=== PATIENT | female | born 1990 | race African-American/Black ===

== ENCOUNTER 2018-10-09 10:06 | Outpatient (CLI) | payer OTHER ==
--- NOTE | 2018-10-10 07:21 | EKG ---
Test Reason : TYPE 1 DIABETES YULIA Blood Pressure : / mmHG Vent. Rate : 089 BPM Atrial Rate : 089 BPM P-R Int : 140 ms QRS Dur : 086 ms QT Int : 354 ms P-R-T Axes : 055 -13 035 degrees QTc Int : 430 ms Normal sinus rhythm Moderate voltage criteria for LVH, may be normal variant Borderline ECG No previous ECGs available Confirmed by EDUARDO ADAME ([id number]) on 10/10/2018 7:21:26 AM Referred By: ANGELLA Confirmed By:EDUARDO ADAME
== END 2018-10-09 10:07 | disposition home or self-care (01) ==
LOC: EKG 10:06
PROVIDERS: ATTEND Obstetrics & Gynecology
DX: E10.9 Type 1 diabetes mellitus without complications (principal)
CPT/HCPCS: 93005; 93010

== ENCOUNTER 2018-11-16 19:55 | Inpatient (IN) | payer OTHER ==
--- NOTE | 2018-11-16 15:24 | PDOC.LDHP ---
Labor and Delivery H&P Chief complaint: scheduled induction HPI: 28 yo @ 37w3d by 27 week sono who presents for IOL due to Type 1 DM ( uncontrolled) and GHTN. Antepartum course also complicated by anemia, + GBS, reported thyroid d/o (however, pt labs wnl without meds). Denies preE sx. Current gestational age (weeks): 37 Due date: 12/04/18 Dating criteria: second trimester ultrasound Grav: 2 Para: 1 Current complications: pregestational diabetes, gestational hypertension Abnormal US findings: No Past Medical History: Class CDM Anemia GHTN ? Thyroid d/o Current medications: pre-peter vitamins, iron, other (Lantus 44 units QAM, 56 units QHS and Novolog QAM 10 with breakfast Metformin 1000 mg BID) Previous surgical history: none Allergies/Adverse Reactions: Allergies Allergy/AdvReac Type Severity Reaction Status Date / Time No Known Allergies Allergy Verified 11/16/18 20:13 Social history: none - Physical Exam Vital signs reviewed and normal: yes General: NAD Heart: RRR Lungs: nonlabored breathing Abdomen: gravid Extremeties: trace edema FHT: category 1 (130s, mod mateo, +accels, no decels) Rotan contractions every: q2-3 min - Vaginal Exam cm dilated: 4 (cephalic, AROM clear ) Effacement: 50% Station: -2 - OB Labs Blood type: O RH: positive Antibody Screen: negative HIV: negative RPR: negative HEPSAg: negative GBS: positive Urine drug screen: negative Rubella: immune Additional Labs: HbA1C 7.4 Hbg 10 TSH wnl RPR +, however, confirmatory testing negative - Assessment 37w3d IUP Class CDM Severe GHTN vs preE with severe features LTC Anemia GBS+ - Plan Plan: admit to L&D, cervical ripening, GBS antibiotic prophylaxis, informed consent obtained, anesthesia consult for pain management -: Took dose of metformin and lantus last night Start NS, plan to transition to dextrose in labor Accuchecks q2 hr in latent and q hr in active labor with SC insulin protocol. If BG not controlled, will use insulin drip. Given Hydralazine 5 mg, 10 mg and Labetalol 20 mg IV last night/this AM with resolution of severe BPs. Mag started. Continue mag for seizure PPX.
[2018-11-16] MEDS ORDERED: Ibuprofen 800 MG TAB PO PRN (20:12)
[2018-11-16] MEDS ORDERED: HYDROcodone/Acetaminophen 5/325 mg Tablet PO PRN (20:12)
[2018-11-16] MEDS ORDERED: Lidocaine 1% (PF) 30 ML VIAL SC PRN (20:12)
[2018-11-16] MEDS ORDERED: Misoprostol 200 MCG TAB PR PRN (20:12)
[2018-11-16] MEDS ORDERED: Diphenoxylate HCl/Atropine Tablet PO PRN (20:12)
[2018-11-16] MEDS ORDERED: Acetaminophen 500 MG TAB PO PRN (20:12)
[2018-11-16] MEDS ORDERED: Promethazine HCl 25 MG/ML VIAL IM PRN (20:12)
[2018-11-16] MEDS ORDERED: Methylergonovine 0.2 MG/ML VIAL IM PRN (20:12)
[2018-11-16] MEDS ORDERED: Butorphanol Tartrate 1 MG/ML VIAL SLOW IVP PRN (20:12)
[2018-11-16] MEDS ORDERED: Insulin Regular 300 UNITS/3 ML VIAL SC PRN (20:12)
[2018-11-16] MEDS ORDERED: Ondansetron PF 4 MG/2 ML Vial IVP PRN (20:12)
[2018-11-16] MEDS ORDERED: Carboprost 250 MCG/ML AMP IM PRN (20:12)
[2018-11-16 20:21] VITALS: BMI 40.7
[2018-11-16] MEDS: Sodium Chloride 0.9% 1,000 ML IV SCH ×2 (20:27→23:58)
[2018-11-16] MEDS ORDERED: metFORMIN 500 MG TAB PO SCH (20:30)
[2018-11-16 20:40] LABS: Hemoglobin 10.1 g/dL (12.0-16.0); Mean Corpuscular HGB CONC 33.5 g/dL (32.0-36.0); Mean Corpuscular Hemoglobin 26.8 pg (27.0-31.0); Mean Corpuscular Volume 79.8 fL (78.0-98.0); Mean Platelet Volume 9.8 fL (7.4-10.4); Platelet Count 156 thou/uL (130-400); RBC Distribution Width 11.9 % (11.5-14.5); Red Blood Cell (RBC) Count 3.79 mill/uL (4.20-5.40); White Blood Cell (WBC) Count 6.9 thou/uL (4.8-10.8)
[2018-11-16] MEDS: Misoprostol 100 MCG TAB VAG SCH ×2 (20:44→23:56)
[2018-11-16] MEDS ORDERED: Penicillin G Potassium 5 MILL.UNITS in Sodium Chloride 0.9% 100 ML IVPB SCH (21:00)
[2018-11-16 21:02] LABS: ALT (SGPT) 7 U/L (8-55); AST (SGOT) 11 U/L (5-34); Albumin 3.2 g/dL (3.5-5.0); Alkaline Phosphatase 89 U/L (40-150); Anion Gap 10 mmol/L (10-20); BUN (Urea Nitrogen) 7 mg/dL (7.0-18.7); Bilirubin, Total 0.3 mg/dL (0.2-1.2); Calc. Creatinine Clearance 227 mL/min (70-130); Calcium 9.8 mg/dL (7.8-10.44); Carbon Dioxide 22 mmol/L (22-29); Chloride 107 mmol/L (98-107); Estimated GFR-MDRD Greater than 90; Globulin 3.5 g/dL (2.4-3.5); Glucose 144 mg/dL (70-105); Potassium 3.9 mmol/L (3.5-5.1); Protein, Total 6.7 g/dL (6.0-8.3); Sodium 135 mmol/L (136-145)
[2018-11-16 21:21] LABS: Syphilis Antibody Nonreactive (Nonreactive); Syphilis Antibody Index 0.05 S/CO (<1.00 Non-Reactive)
[2018-11-16 22:26] LABS: HBSAg Index 0.29 S/CO (0-0.99); HIV (1/2) Antibody/Antigen Non-Reactive (NonReactive); HIV 1/2 INDEX 0.26 S/CO (<1.00); Hep B Surf Ag Non-Reactive S/CO (NonReactive)
[2018-11-17 00:31] LABS: Bilirubin Negative (Negative); Blood, Urine Negative (Negative); Clarity CLEAR (Clear); Glucose, Urine (Dipstick) Negative (Negative); Leukocyte Negative (Negative); Nitrite Negative (Negative); Protein, Urine (Dipstick) Trace mg/dL (Neg-Trace); Specific Gravity, Urine 1.016 (1.002-1.036); pH, Urine 6.5 (5.0-9.0)
[2018-11-17 00:35] LABS: Bacteria/HPF 1+ HPF (None Seen); Hyaline Casts/LPF 4-6 HYALINE CAST LPF (0-3 Hyaline); Pathc Cast-AUWi Flag 1.08 (0-2.49); RBC/HPF 0-3 HPF (0-3); Squamous Epithelial 0-3 HPF (0-3); WBC/HPF 0-3 HPF (0-3)
[2018-11-17] MEDS: Misoprostol 100 MCG TAB VAG SCH ×6 (02:58→18:45)
[2018-11-17] MEDS ORDERED: hydrALAZINE 20 MG/ML VIAL SLOW IVP SCH (04:30)
[2018-11-17] MEDS: Penicillin G 2.5 MILL.units 2.5 MILL.UNITS in Premix Bag 1 BAG IVPB SCH ×6 (04:39→18:30)
[2018-11-17] MEDS ORDERED: hydrALAZINE 20 MG/ML VIAL SLOW IVP PRN (04:45)
[2018-11-17] MEDS: Labetalol HCl 100 MG/20 ML VIAL ONE ×2 (05:51→18:41)
[2018-11-17] MEDS ORDERED: Magnesium Sulfate 20 gm/500 ml 4 GM/100 ML BAG IVPB SCH (06:00)
[2018-11-17] MEDS ORDERED: Misoprostol 100 MCG TAB PO SCH (06:00)
[2018-11-17] MEDS ORDERED: Calcium Gluc 4.6 MEQ/10 ML (100 MG/ML) SLOW IVP PRN (07:32)
[2018-11-17] MEDS ORDERED: Fentanyl 4 mcg/Bup 0.1% Cadd 100 ML ONE (07:52)
[2018-11-17] MEDS ORDERED: metFORMIN 500 MG TAB PO SCH (08:00)
[2018-11-17] MEDS ORDERED: Fentanyl 4 mcg/Bupivacaine 0.1% Cassette 100 ML EPIDURAL SCH (08:30)
[2018-11-17] MEDS ORDERED: diphenhydrAMINE 50 MG/ML VIAL IVP PRN (08:30)
[2018-11-17] MEDS ORDERED: Ondansetron PF 4 MG/2 ML Vial IVP PRN (08:30)
[2018-11-17] MEDS ORDERED: Acetaminophen 325 MG TAB PO PRN (08:30)
[2018-11-17] MEDS ORDERED: Promethazine HCl 25 MG/ML VIAL IM PRN (08:30)
[2018-11-17] MEDS ORDERED: Communication Order-Pharmacy FS SCH (08:30)
[2018-11-17] MEDS ORDERED: ePHEDrine/0.9% NaCl/PF SYRINGE 50 mg/10 ml SLOW IVP PRN (08:30)
[2018-11-17] MEDS ORDERED: Naloxone HCl 0.4 mg/ml Vial IVP PRN ×2 (08:30)
[2018-11-17] MEDS ORDERED: Lactated Ringer's 500 ML IV PRN (08:30)
[2018-11-17] MEDS: NS w/ Oxytocin 10 units 500 ML IV SCH (08:49)
[2018-11-17] MEDS ORDERED: Dextrose 5%-Lactated Ringers 1,000 ML IV SCH (10:00)
--- NOTE | 2018-11-17 13:07 | PDOC.LDPN ---
Labor & Delivery Progress Note - Subjective Subjective: comfortable - Objective Vital signs reviewed and normal: yes General: NAD Uterine fundus: non tender SVE: 7 Effacement: 90% Station: 1+ FHT: category 1 (110s, mod mateo, +accels, no decels ) Cumings contractions every: q2-4 min - Assessment (1) 37 weeks gestation of Code(s): Z3A.37 - 37 WEEKS GESTATION OF Current Visit: Yes Status : Acute (2) Type 1 diabetes mellitus Current Visit: Yes Status: Acute (3) Pre-eclampsia Code(s): O14.90 - UNSPECIFIED PRE-ECLAMPSIA, UNSPECIFIED TRIMESTER Current Visit: Yes Status: Acute (4) Anemia Code(s): D64.9 - ANEMIA, UNSPECIFIED Current Visit: Yes Status: Acute Qualifiers: Iron deficiency anemia type: inadequate dietary iron intake (5) Group B streptococcal carriage complicating Code(s): O99.820 - STREPTOCOCCUS B CARRIER STATE COMPLICATING Current Visit: Yes Status: Acute Plan: continue plan of care, pitocin for augmentation -: BG well controlled, Dextrose for labor Continue mag protocol. BPs normal-mild range at this time.
[2018-11-17] MEDS: Magnesium Sulfate 20 gm/500 ml 20 GM/500 ML BAG IVPB PRN ×2 (14:16→23:53)
[2018-11-17] MEDS: NS / Oxytocin 40 units/1000ml 1,000 ML IV PRN ×2 (14:38→22:03)
[2018-11-17] MEDS ORDERED: Misoprostol 200 MCG TAB ONE (14:44)
[2018-11-17] MEDS ORDERED: Carboprost 250 MCG/ML AMP ONE (14:44)
--- NOTE | 2018-11-17 14:59 | PDOC.OPDEL ---
OB Operative/Delivery Note Delivery Dr/Surgeon: Nancy Green DO Pre-Delivery Diagnosis: medically indicated induction Procedure/Post Delivery Dx: spontaneous vaginal delivery Weeks gestation: 37 Anesthesia: epidural - Findings A Sex: male - 1 min: 8 - 5 min: 8 - Additional Findings/Plan Placenta delivered: spontaneous Repaired Obstetrical Laceration: 2nd degree Estimated blood loss: QBL 500 cc Compilations/Other Findings: Infant in DOMINIK position. Nuchal x 1 Normal appearing placenta uterine atony at delivery, Hemabate and cytotec given with resolution Post delivery plan: recovery in LICU
[2018-11-17] MEDS ORDERED: HYDROcodone/Acetaminophen 5/325 mg Tablet PO PRN (16:33)
[2018-11-17] MEDS ORDERED: Benzocaine-Menthol 82.5 ML CAN TOP PRN (16:33)
[2018-11-17] MEDS ORDERED: Bisacodyl 10 MG SUPP PR PRN (16:33)
[2018-11-17] MEDS ORDERED: Milk Of Magnesia 30 ML UDCUP PO PRN (16:33)
[2018-11-17] MEDS ORDERED: NS / Oxytocin 40 units/1000ml 1,000 ML IV SCH (16:45)
[2018-11-17] MEDS: Ferrous Sulfate 325 MG TAB PO SCH (18:41)
[2018-11-17] MEDS: metFORMIN 500 MG TAB PO SCH (18:45)
[2018-11-17] MEDS ORDERED: Labetalol HCl 100 MG/20 ML VIAL SLOW IVP SCH (19:00)
--- NOTE | 2018-11-17 20:37 | PDOC.EVN ---
Event Note - Event Note Event Note: Late entry note Notified by RN regarding severe range BP near 6:30 pm. Pt given Labetalol 20 mg IV Plan to start Labtalol 200 mg PO BID Continue magnesium until 24 hrs PP Hold home insulin until eating, PRN insulin
[2018-11-17] MEDS: Labetalol 100 MG TAB PO SCH (21:03)
[2018-11-17] MEDS: Docusate Calcium (SURFAK) 240 MG CAP PO SCH (23:49)
[2018-11-18 06:44] LABS: Mean Corpuscular HGB CONC 33.4 g/dL (32.0-36.0); Mean Corpuscular Hemoglobin 26.8 pg (27.0-31.0); Mean Corpuscular Volume 80.3 fL (78.0-98.0); Mean Platelet Volume 9.7 fL (7.4-10.4); Platelet Count 167 thou/uL (130-400); RBC Distribution Width 12.2 % (11.5-14.5); Red Blood Cell (RBC) Count 3.72 mill/uL (4.20-5.40); White Blood Cell (WBC) Count 10.8 thou/uL (4.8-10.8)
[2018-11-18 07:06] LABS: ALT (SGPT) 7 U/L (8-55); AST (SGOT) 14 U/L (5-34); Albumin 2.8 g/dL (3.5-5.0); Alkaline Phosphatase 81 U/L (40-150); Anion Gap 12 mmol/L (10-20); BUN (Urea Nitrogen) Less than 4 mg/dL (7.0-18.7); Bilirubin, Total 0.6 mg/dL (0.2-1.2); Calc. Creatinine Clearance 244 mL/min (70-130); Calcium 8.1 mg/dL (7.8-10.44); Carbon Dioxide 20 mmol/L (22-29); Chloride 107 mmol/L (98-107); Estimated GFR-MDRD Greater than 90; Glucose 82 mg/dL (70-105); Protein, Total 5.8 g/dL (6.0-8.3); Sodium 135 mmol/L (136-145)
[2018-11-18] MEDS: Labetalol 100 MG TAB PO SCH ×2 (08:23→21:00)
[2018-11-18] MEDS: Ibuprofen 800 MG TAB PO PRN (08:24)
[2018-11-18] MEDS: metFORMIN 500 MG TAB PO SCH ×2 (08:24→17:24)
[2018-11-18] MEDS: Docusate Calcium (SURFAK) 240 MG CAP PO SCH ×2 (08:25→21:01)
[2018-11-18] MEDS: Ferrous Sulfate 325 MG TAB PO SCH ×2 (08:25→17:24)
[2018-11-18] MEDS: Magnesium Sulfate 20 gm/500 ml 20 GM/500 ML BAG IVPB PRN (08:26)
--- NOTE | 2018-11-18 10:34 | PDOC.PP ---
Post Progress Note Post Day #: 1 PO intake tolerated: yes Flatus: no Ambulation: no Vital Signs (12 hours) Pulse BP 11/18/18 08:23 85 142/88 H 11/17/18 23:49 88 135/83 Weight Weight 260 lb - Physical Examination General: NAD Respiratory: non-labored breathing Abdominal: no distention, appropriately TTP Fundus firm & at: umb-2 Skin: no rash Neurological: no gross focal deficits (DTR 2+ bilaterally) Psychiatric: normal affect Result Diagrams: 11/18/18 06:29 11/18/18 06:29 Additional Labs: Post Labs Blood Type O POSITIVE 11/16/18 21:34 Hep Bs Antigen Non-Reactive S/CO (NonReactive) 11/16/18 20:20 - Assessment/Plan PPD1 s/p TSVD at 37w due to PIH with T2DM. VSSAF PIH- on labetalol 200 BID, BP nl -mild, no sx PIH, on Mag until 24h post delivery, will DC at 24h. PIH labs wnl, diuresing 200-300cc/hr, no sx Mag toxicity T2DM- restart half dose insulin, ADA diet restarted for lunch - DC da silva OOB/ambulate Mild anemia due to acute blood loss, lochia appropriate, no sx anemia, cont Iron and PNV. Transfer to floor after Mag course.
[2018-11-18] MEDS: HumaLOG 300 UNITS/3 ML VIAL SC SCH ×2 (12:16→17:21)
[2018-11-18] MEDS: Insulin Glargine 28 UNITS in Pre-Filled Syringe 1 EACH SC SCH (21:03)
[2018-11-19] MEDS: Labetalol 100 MG TAB PO SCH ×2 (07:59→21:01)
[2018-11-19] MEDS ORDERED: Labetalol HCl 100 MG/20 ML VIAL SLOW IVP SCH ×2 (08:30→12:45)
--- NOTE | 2018-11-19 08:41 | PDOC.PP ---
Post Progress Note Post Day #: 2 Subjective: Denies preE sx. Minimal pain and lochia. Formula feeding. Held PM insulin du eto BG in 70s-90s. Still taking Metformin. PO intake tolerated: yes Flatus: yes Ambulation: yes Vital Signs (12 hours) Temp Pulse Resp BP BP BP 11/19/18 08:33 82 173/82 H 11/19/18 07:59 89 171/81 H 11/19/18 05:40 97.7 F 92 20 140/68 11/19/18 00:00 97.7 F 87 18 139/76 11/18/18 21:00 86 18 157/81 H 157/87 H Weight Weight 260 lb - Physical Examination General: NAD Cardiovascular: RRR Respiratory: non-labored breathing Abdominal: no distention, appropriately TTP Deviation from normal: Fundus firm & at: below umbilicus Extremities: negative homans (B) Deviation from normal: no clonus, DTRs wnl. Neurological: no gross focal deficits Psychiatric: A&Ox3, normal affect Result Diagrams: 11/18/18 06:29 11/18/18 06:29 Additional Labs: Post Labs Blood Type O POSITIVE 11/16/18 21:34 Hep Bs Antigen Non-Reactive S/CO (NonReactive) 11/16/18 20:20 (1) 37 weeks gestation of Code(s): Z3A.37 - 37 WEEKS GESTATION OF Status: Resolved (2) Type 1 diabetes mellitus Status: Acute (3) Pre-eclampsia Code(s): O14.90 - UNSPECIFIED PRE-ECLAMPSIA, UNSPECIFIED TRIMESTER Status: Acute (4) Anemia Code(s): D64.9 - ANEMIA, UNSPECIFIED Status: Acute Qualifiers: Iron deficiency anemia type: inadequate dietary iron intake (5) Group B streptococcal carriage complicating Code(s): O99.820 - STREPTOCOCCUS B CARRIER STATE COMPLICATING Status : Resolved - Assessment/Plan PPD2 Severe HTN this am. Labetalol 20 mg IV once given now. Continue Labetalol 200 mg BID and add procardia 30 mg XL this AM. Continue to observe until BPs well controlled. Insulin at half dose prior to delivery, however, not needed last night. Will monitor and adjust insulin as needed. Continue iron Plan for d/c in 1-2 days after DM regimen established and HTN controlled.
[2018-11-19] MEDS: metFORMIN 500 MG TAB PO SCH ×2 (09:10→17:57)
[2018-11-19] MEDS: Insulin Glargine 22 UNITS in Pre-Filled Syringe 1 EACH SC SCH (09:10)
[2018-11-19] MEDS: NIFEdipine XL 30 MG TAB PO SCH (09:10)
[2018-11-19] MEDS: Docusate Calcium (SURFAK) 240 MG CAP PO SCH ×2 (09:10→21:01)
[2018-11-19] MEDS: Ferrous Sulfate 325 MG TAB PO SCH ×2 (09:10→17:57)
[2018-11-19] MEDS: HumaLOG 300 UNITS/3 ML VIAL SC SCH ×3 (09:12→17:57)
[2018-11-19] MEDS: NS w/ Oxytocin 10 units 500 ML IV SCH (09:32)
[2018-11-19] MEDS: Ibuprofen 800 MG TAB PO PRN (20:29)
[2018-11-19] MEDS: Insulin Glargine 28 UNITS in Pre-Filled Syringe 1 EACH SC SCH (21:01)
--- NOTE | 2018-11-20 08:01 | PDOC.PP ---
Post Progress Note Post Day #: 3 Subjective: No concerns. Minimal pain and lochia. Denies preE sx. Bottle feeding. PO intake tolerated: yes Flatus: yes Ambulation: yes Vital Signs (12 hours) Temp Pulse Resp BP BP BP Pulse Ox 11/20/18 04:36 97.6 F 88 20 149/88 H 11/20/18 00:00 97.8 F 92 18 134/68 11/19/18 21:01 86 157/78 H 11/19/18 20:30 98.4 F 86 18 157/78 H 99 Weight Weight 260 lb - Physical Examination General: NAD Cardiovascular: RRR Respiratory: non-labored breathing Abdominal: appropriately TTP Extremities: negative homans (B) Neurological: no gross focal deficits Psychiatric: A&Ox3, normal affect Result Diagrams: 11/18/18 06:29 11/18/18 06:29 Additional Labs: Post Labs Blood Type O POSITIVE 11/16/18 21:34 Hep Bs Antigen Non-Reactive S/CO (NonReactive) 11/16/18 20:20 (1) 37 weeks gestation of Code(s): Z3A.37 - 37 WEEKS GESTATION OF Status: Resolved (2) Type 1 diabetes mellitus Status: Acute (3) Pre-eclampsia Code(s): O14.90 - UNSPECIFIED PRE-ECLAMPSIA, UNSPECIFIED TRIMESTER Status: Acute (4) Anemia Code(s): D64.9 - ANEMIA, UNSPECIFIED Status: Acute Qualifiers: Iron deficiency anemia type: inadequate dietary iron intake (5) Group B streptococcal carriage complicating Code(s): O99.820 - STREPTOCOCCUS B CARRIER STATE COMPLICATING Status : Resolved (6) Vaginal delivery Code(s): O80 - ENCOUNTER FOR FULL-TERM UNCOMPLICATED DELIVERY Status: Acute - Assessment/Plan PPD3 DM controlled with current regimen. Advised to continue at home. BPs improved with Procardia and Labetalol. Continue dosing at home. Advised to check BPs daily at home Stable for d/c home today with . F/U 2 weeks BP check.
[2018-11-20 08:31] VITALS: TEMP 98.1
[2018-11-20] MEDS: HumaLOG 300 UNITS/3 ML VIAL SC SCH ×2 (08:45→12:46)
[2018-11-20] MEDS: Docusate Calcium (SURFAK) 240 MG CAP PO SCH (08:45)
[2018-11-20] MEDS: metFORMIN 500 MG TAB PO SCH (08:45)
[2018-11-20] MEDS: Ferrous Sulfate 325 MG TAB PO SCH (08:45)
[2018-11-20] MEDS: Labetalol 100 MG TAB PO SCH (08:45)
[2018-11-20] MEDS: NIFEdipine XL 30 MG TAB PO SCH (08:45)
[2018-11-20] MEDS: Insulin Glargine 22 UNITS in Pre-Filled Syringe 1 EACH SC SCH (09:00)
[2018-11-20] MEDS ORDERED: Adacel (T-DAP) 0.5 ML SYRINGE IM ONE (12:00)
[2018-11-20] MEDS ORDERED: Labetalol HCl 100 MG/20 ML VIAL SLOW IVP SCH (12:30)
[2018-11-20 13:07] VITALS: BP 159/78
== END 2018-11-20 15:05 | disposition home or self-care (01) | DRG 806 ==
LOC: L&D 19:55 → 3SW 11-18 16:10
PROVIDERS: ADMIT Obstetrics & Gynecology; ATTEND Obstetrics & Gynecology
PROC: 10E0XZZ Delivery of Products of Conception, External Approach (ICD-10-PCS; principal; 2018-11-17)
PROC: 0KQM0ZZ Repair Perineum Muscle, Open Approach (ICD-10-PCS; 2018-11-17)
PROC: 3E0P7VZ Introduction of Hormone into Female Reproductive, Via Natural or Artificial Opening (ICD-10-PCS; 2018-11-17)
PROC: 3E033VJ Introduction of Other Hormone into Peripheral Vein, Percutaneous Approach (ICD-10-PCS; 2018-11-17)
DX: O24.02 Pre-existing type 1 diabetes mellitus, in childbirth (principal); D62 Acute posthemorrhagic anemia; Z37.0 Single live birth; E10.9 Type 1 diabetes mellitus without complications; O13.4 Gestational [pregnancy-induced] hypertension without significant proteinuria, complicating childbirth; O99.824 Streptococcus B carrier state complicating childbirth; O99.02 Anemia complicating childbirth; O14.94 Unspecified pre-eclampsia, complicating childbirth; O69.81X0 Labor and delivery complicated by cord around neck, without compression, not applicable or unspecified; O70.1 Second degree perineal laceration during delivery; Z3A.37 37 weeks gestation of pregnancy; Z79.4 Long term (current) use of insulin
CPT/HCPCS: 36415; 36416; 51702; 80053; 81001; 83735; 85027; 86780; 86850; 86900; 86901; 87340; 87389; 90715; C1726; J0360; J1815; J1825; J2001; J2540; J2590; J3475; J3490

== ENCOUNTER 2021-11-12 20:14 | Inpatient (IN) | payer OTHER ==
[~2021-11-12 20:14] MED LIST: Iopamidol-370 76% 500 ML 1 ML ONE
[2021-11-12 20:43] LABS: #Monocytes 0.5 thou/uL (0.11-0.59); #Neutrophils 9.2 thou/uL (1.40-6.50); %Basophils 0.2 % (0.0-1.0); %Eosinophils 0.1 % (0.0-10.0); %Monocytes 4.3 % (0.0-10.0); %Neutrophils 86.4 % (42.0-75.0); Hemoglobin 12.4 g/dL (12.0-16.0); Mean Corpuscular HGB CONC 32.6 g/dL (32.0-36.0); Mean Corpuscular Hemoglobin 26.9 pg (27.0-31.0); Mean Corpuscular Volume 82.5 fL (78.0-98.0); Mean Platelet Volume 7.8 fL (7.4-10.4); Platelet Count 232 thou/uL (130-400); RBC Distribution Width 11.5 % (11.5-14.5); Red Blood Cell (RBC) Count 4.61 mill/uL (4.20-5.40); White Blood Cell (WBC) Count 10.6 thou/uL (4.8-10.8)
[2021-11-12] MEDS ORDERED: Ketorolac Tromethamine 30 MG/ML VIAL ONE (20:50)
[2021-11-12] MEDS ORDERED: cefTRIAXone\\ROCEPHIN 2 GM VIAL ONE (20:50)
[2021-11-12 20:51] LABS: Actual Bicarbonate (HCO3v) 22 mEq/L (22-28); Analyzer IN Cardio ER; Base Excess 0.1 mEq/L (-2.0 to +3.0); Calcium, Ionized (venous) 1.08 mmol/L (1.16-1.32); Chloride (VBG) 100 mmol/L (98-106); Sodium 130.8 mmol/L (133-146); pH (venous) 7.53 (7.32-7.43)
[2021-11-12] MEDS ORDERED: Acetaminophen 500 MG TAB ONE (20:52)
[2021-11-12 20:53] LABS: BHCG - Serum Negative (NEGATIVE); Pregs Control Background? CLEAR/WHITE (CLR/WHITE); Pregs Control Bar Appear? YES (CONTROL BAR)
[2021-11-12 21:03] LABS: ALT (SGPT) 18 U/L (8-55); AST (SGOT) 21 U/L (5-34); Alkaline Phosphatase 80 U/L (40-110); Anion Gap 14 mmol/L (10-20); BUN (Urea Nitrogen) 9 mg/dL (7.0-18.7); Bilirubin, Total 1.8 mg/dL (0.2-1.2); Calc. Creatinine Clearance 0 mL/min (70-130); Calcium 9.6 mg/dL (7.8-10.44); Carbon Dioxide 24 mmol/L (22-29); Chloride 99 mmol/L (98-107); Globulin 4.6 g/dL (2.4-3.5); Glucose 301 mg/dL (70-105); Protein, Total 8.6 g/dL (6.0-8.3); Sodium 133 mmol/L (136-145)
[2021-11-12 21:30] LABS: Bacteria/HPF 4+ HPF (None Seen); Bilirubin Negative (Negative); Blood, Urine 2+ (Negative); Clarity Turbid (Clear); Glucose, Urine (Dipstick) >=1000 mg/dL (Negative); Ketone, Urine 40 mg/dL (Negative); Leukocyte 25 Leu/uL (Negative); Nitrite 1+ (Negative); Protein, Urine (Dipstick) 200 mg/dL (Neg-Trace); Specific Gravity, Urine 1.015 (1.002-1.036); Squamous Epithelial 0-3 HPF (0-3); Urobilinogen 3 mg/dL (Less than 2); WBC/HPF Greater than 50 HPF (0-3)
[2021-11-12] MEDS ORDERED: Senokot S 8.6-50 MG TAB PO PRN (23:18)
[2021-11-12] MEDS ORDERED: Acetaminophen 325 MG TAB PO PRN (23:18)
[2021-11-12] MEDS ORDERED: Insulin Regular 300 UNITS/3 ML VIAL SC PRN (23:21)
[2021-11-12] MEDS ORDERED: Dextrose 5% in Water 1,000 ML IV PRN (23:21)
[2021-11-12] MEDS ORDERED: Dextrose 50% Abboject 50 ML SYRINGE SLOW IVP PRN (23:21)
[2021-11-13 00:48] VITALS: BMI 35.9
[2021-11-13] MEDS: Sodium Chloride 0.9% 1,000 ML IV SCH ×3 (01:28→20:57)
[2021-11-13] MEDS: Ondansetron PF 4 MG/2 ML Vial IVP PRN ×2 (04:37→11:36)
[2021-11-13] MEDS: HumaLOG 300 UNITS/3 ML VIAL SC PRN ×2 (05:49→17:37)
[2021-11-13 06:25] LABS: #Lymphocytes 0.7 thou/uL (1.20-3.40); #Monocytes 0.6 thou/uL (0.11-0.59); #Neutrophils 5.8 thou/uL (1.40-6.50); %Basophils 0.1 % (0.0-1.0); %Eosinophils 0.1 % (0.0-10.0); %Lymphocytes 9.9 % (21.0-51.0); %Monocytes 8.3 % (0.0-10.0); %Neutrophils 81.6 % (42.0-75.0); Hemoglobin 11.4 g/dL (12.0-16.0); Mean Corpuscular Hemoglobin 26.8 pg (27.0-31.0); Mean Corpuscular Volume 83.6 fL (78.0-98.0); Mean Platelet Volume 7.3 fL (7.4-10.4); Platelet Count 165 thou/uL (130-400); RBC Distribution Width 11.4 % (11.5-14.5); Red Blood Cell (RBC) Count 4.26 mill/uL (4.20-5.40); White Blood Cell (WBC) Count 7.1 thou/uL (4.8-10.8)
[2021-11-13 06:43] LABS: ALT (SGPT) 16 U/L (8-55); AST (SGOT) 16 U/L (5-34); Albumin 3.4 g/dL (3.5-5.0); Alkaline Phosphatase 73 U/L (40-110); Anion Gap 11 mmol/L (10-20); BUN (Urea Nitrogen) 8 mg/dL (7.0-18.7); Calc. Creatinine Clearance 192 mL/min (70-130); Calcium 8.7 mg/dL (7.8-10.44); Carbon Dioxide 25 mmol/L (22-29); Chloride 104 mmol/L (98-107); Glucose 228 mg/dL (70-105); Potassium 3.7 mmol/L (3.5-5.1); Protein, Total 7.4 g/dL (6.0-8.3); Sodium 136 mmol/L (136-145)
[2021-11-13] MEDS: Famotidine 20 MG TAB PO SCH ×2 (08:49→20:59)
[2021-11-13] MEDS: HumaLOG 300 UNITS/3 ML VIAL SC SCH ×3 (10:08→17:20)
[2021-11-13] MEDS: Insulin Glargine 30 UNITS/0.3 ML VIAL SC SCH ×2 (11:36→17:36)
[2021-11-13] MEDS: Ketorolac Tromethamine 30 MG/ML VIAL IVP PRN (16:25)
[2021-11-13 17:09] LABS: SARS-CoV-2 PCR by NAA Not Detected (NotDetected)
[2021-11-13] MEDS ORDERED: Insulin Glargine 30 UNITS/0.3 ML VIAL SC SCH (21:00)
[2021-11-13] MEDS ORDERED: Lisinopril 20 MG TAB PO SCH (21:00)
[2021-11-13] MEDS ORDERED: cefTRIAXone\\ROCEPHIN 2 GM in Sodium Chloride 0.9% 100 ML IVPB SCH (22:00)
[2021-11-14 05:52] LABS: #Lymphocytes 1.3 thou/uL (1.20-3.40); #Monocytes 0.5 thou/uL (0.11-0.59); #Neutrophils 3.4 thou/uL (1.40-6.50); %Basophils 0.1 % (0.0-1.0); %Eosinophils 0.3 % (0.0-10.0); %Lymphocytes 23.9 % (21.0-51.0); %Monocytes 10.1 % (0.0-10.0); %Neutrophils 65.6 % (42.0-75.0); Hemoglobin 10.8 g/dL (12.0-16.0); Mean Corpuscular HGB CONC 32.4 g/dL (32.0-36.0); Mean Corpuscular Hemoglobin 27.3 pg (27.0-31.0); Mean Corpuscular Volume 84.1 fL (78.0-98.0); Mean Platelet Volume 8.1 fL (7.4-10.4); Platelet Count 158 thou/uL (130-400); RBC Distribution Width 11.5 % (11.5-14.5); Red Blood Cell (RBC) Count 3.96 mill/uL (4.20-5.40); White Blood Cell (WBC) Count 5.2 thou/uL (4.8-10.8)
[2021-11-14] MEDS: Ondansetron PF 4 MG/2 ML Vial IVP PRN (06:04)
[2021-11-14] MEDS: Ketorolac Tromethamine 30 MG/ML VIAL IVP PRN (06:10)
[2021-11-14 06:13] LABS: Anion Gap 11 mmol/L (10-20); BUN (Urea Nitrogen) 7 mg/dL (7.0-18.7); Calc. Creatinine Clearance 192 mL/min (70-130); Calcium 8.9 mg/dL (7.8-10.44); Carbon Dioxide 26 mmol/L (22-29); Chloride 105 mmol/L (98-107); Glucose 135 mg/dL (70-105); Potassium 3.5 mmol/L (3.5-5.1); Sodium 138 mmol/L (136-145)
[2021-11-14] MEDS: Insulin Glargine 30 UNITS/0.3 ML VIAL SC SCH (06:15)
[2021-11-14] MEDS: Sodium Chloride 0.9% 1,000 ML IV SCH (06:16)
[2021-11-14] MEDS ORDERED: Insulin Glargine 30 UNITS/0.3 ML VIAL SC SCH (07:30)
[2021-11-14] MEDS ORDERED: Ciprofloxacin 500 MG TAB PO SCH ×2 (08:00→20:00)
[2021-11-14] MEDS: Famotidine 20 MG TAB PO SCH (08:37)
[2021-11-14 08:42] VITALS: BP 141/90; TEMP 98.6
[2021-11-14] MEDS ORDERED: Lisinopril 20 MG TAB PO SCH ×2 (09:00→21:00)
== END 2021-11-14 11:20 | disposition home or self-care (01) | DRG 872 ==
LOC: ERS 20:14 → T4-B 23:21 → OBSVTOIN 11-14 11:06
PROVIDERS: ADMIT Internal Medicine; ATTEND Internal Medicine
DX: A41.9 Sepsis, unspecified organism (principal); N39.0 Urinary tract infection, site not specified; Z16.11 Resistance to penicillins; E10.9 Type 1 diabetes mellitus without complications; I10 Essential (primary) hypertension; M54.9 Dorsalgia, unspecified; E88.09 Other disorders of plasma-protein metabolism, not elsewhere classified; B96.20 Unspecified Escherichia coli [E. coli] as the cause of diseases classified elsewhere; Z20.822 Contact with and (suspected) exposure to COVID-19; Z79.4 Long term (current) use of insulin; Z79.899 Other long term (current) drug therapy; Z79.84 Long term (current) use of oral hypoglycemic drugs; Z80.1 Family history of malignant neoplasm of trachea, bronchus and lung; Z84.89 Family history of other specified conditions
CPT/HCPCS: 36415; 36416; 74177; 80048; 80053; 81003; 81015; 82010; 82805; 83605; 84703; 85025; 87040; 87077; 87086; 87186; 93005; 96361; 96365; 96366; 96375; 96376; G0378; J0696; J1815; J1885; J2405; J3490; J7050; Q9967; U0003; U0005